=== PATIENT | female | born 1950 | race Caucasian/White ===

== ENCOUNTER 2016-10-11 07:20 | Day surgery (SDC) | payer OTHER ==
[2016-10-11 07:51] VITALS: BMI 38.5
--- NOTE | 2016-10-11 08:56 | CP.SDSHP ---
Same Day Surgery H & P - History Proposed Procedure: COLONSCOPY Pre-Op Diagnosis: SEE NOTES - Previous Medical/Surgical History Cardiac: Hypertension Misc: Other Pain: 4.Moderate Pain Previous Surgical History: HX. OF COLON POLYPS - Allergies Allergies: Allergies No Known Allergies Allergy (Unverified 07/13/13 16:48) - Physical Exam General Appearance: N Vital Signs: Vital Signs 10/11/16 08:00 Temperature 97.8 F Pulse Rate 52 L Respiratory 17 Rate Blood Pressure 130/54 L O2 Sat by Pulse 100 Oximetry Mental Status: Alert & Oriented x3 Neuro: WNL Heart: Other Lungs: WNL GI: WNL - {Optional Preform as Required} Breast: WNL Abdomen: Other Rectal: Other Integument: WNL : WNL Ortho: WNL - Impression Pt. Evaluated Today:Candidate for Anesthesia & Procedure: Yes - Date & Time Time: 08:58 Short Stay Discharge - Short Stay Discharge Admitting Diagnosis/Reason for Visit: COLON POLYP Disposition: HOME/ ROUTINE
[2016-10-11] MEDS ORDERED: Lactated Ringer's 500 ML IV ONE ×2 (08:57)
[2016-10-11] MEDS ORDERED: Propofol 10 mg/ml Inj (20 ML) ONE (08:57)
[2016-10-11] MEDS ORDERED: Belladonna-Phenobarbital PO STA (08:59)
[2016-10-11 10:00] VITALS: TEMP 98.9
[2016-10-11 10:49] VITALS: BP 130/50; PULSE 47; RESP 17; O2SAT 99
== END 2016-10-11 10:40 | disposition home or self-care (01) ==
LOC: C.ENDO 07:20
PROVIDERS: ATTEND Specialist
DX: D12.0 Benign neoplasm of cecum (principal); K64.8 Other hemorrhoids
CPT/HCPCS: 45388; 88305; J2001; J2704; J7120

== ENCOUNTER 2016-10-13 06:40 | Day surgery (SDC) | payer OTHER ==
[2016-10-13 07:14] VITALS: TEMP 97.1
--- NOTE | 2016-10-13 08:07 | CP.SDSHP ---
Same Day Surgery H & P - History Proposed Procedure: EGD Pre-Op Diagnosis: SEE NOTES - Previous Medical/Surgical History Cardiac: Hypertension Misc: Other Pain: 4.Moderate Pain - Allergies Allergies: Allergies No Known Allergies Allergy (Unverified 07/13/13 16:48) - Physical Exam General Appearance: N Vital Signs: Vital Signs 10/13/16 07:08 Temperature 97.1 F L Pulse Rate 54 L Respiratory 19 Rate Blood Pressure 132/58 L O2 Sat by Pulse 99 Oximetry Mental Status: Alert & Oriented x3 Neuro: WNL Heart: Other Lungs: WNL GI: WNL - {Optional Preform as Required} Breast: WNL Abdomen: Other Rectal: Other Integument: WNL : WNL Ortho: Other ENT: WNL - Impression Pt. Evaluated Today:Candidate for Anesthesia & Procedure: Yes - Date & Time Time: 08:07 Short Stay Discharge - Short Stay Discharge Admitting Diagnosis/Reason for Visit: DYSPEPSIA Disposition: HOME/ ROUTINE
[2016-10-13] MEDS ORDERED: Propofol 10 mg/ml Inj (20 ML) ONE (08:09)
[2016-10-13] MEDS ORDERED: Belladonna-Phenobarbital PO ONE (08:30)
[2016-10-13 09:08] VITALS: RESP 18
[2016-10-13 09:23] VITALS: O2SAT 100
[2016-10-13 09:25] VITALS: BP 131/70; PULSE 57
== END 2016-10-13 09:23 | disposition home or self-care (01) ==
LOC: C.ENDO 06:40
PROVIDERS: ATTEND Specialist
DX: K44.9 Diaphragmatic hernia without obstruction or gangrene (principal); K31.7 Polyp of stomach and duodenum; K31.9 Disease of stomach and duodenum, unspecified; I10 Essential (primary) hypertension; Z79.899 Other long term (current) drug therapy

== ENCOUNTER 2018-03-06 08:43 | Day surgery (SDC) | payer OTHER ==
--- NOTE | 2018-03-06 10:26 | CP.SDSHP ---
Same Day Surgery H & P - History Proposed Procedure: COLONSCOPY Pre-Op Diagnosis: SEE NOTES - Previous Medical/Surgical History Cardiac: Hypertension, ASHD/CAD Endocrine/Metabolic: Diabetes, Other Neuro: Backaches - Allergies Allergies: Allergies No Known Allergies Allergy (Unverified 03/06/18 09:21) - Physical Exam General Appearance: N Vital Signs: Vital Signs 03/06/18 09:00 Temperature 98.4 F Pulse Rate 50 L Respiratory 16 Rate Blood Pressure 125/55 L O2 Sat by Pulse 96 Oximetry Mental Status: Alert & Oriented x3 Neuro: WNL Heart: Other Lungs: WNL GI: Other - {Optional Preform as Required} Breast: WNL Abdomen: Other Rectal: Other Integument: WNL : WNL Ortho: Other ENT: WNL - Impression Pt. Evaluated Today:Candidate for Anesthesia & Procedure: Yes - Date & Time Time: 10:26 Short Stay Discharge - Short Stay Discharge Admitting Diagnosis/Reason for Visit: HISTORY OF COLON POLYP Disposition: HOME/ ROUTINE
[2018-03-06] MEDS ORDERED: Propofol 10 mg/ml Inj (20 ML) ONE (10:30)
[2018-03-06] MEDS ORDERED: Belladonna-Phenobarbital PO ONE (10:45)
[2018-03-06] MEDS ORDERED: Lidocaine Hydrochloride 5 ML INJ ONE (11:01)
[2018-03-06 11:04] VITALS: TEMP 97.8
[2018-03-06 12:39] VITALS: BP 112/48; PULSE 50; RESP 20; O2SAT 99
== END 2018-03-06 12:10 | disposition home or self-care (01) ==
LOC: C.ENDO 08:43
PROVIDERS: ATTEND Specialist
DX: Z86.010 Personal history of colon polyps (principal); Z12.11 Encounter for screening for malignant neoplasm of colon; D12.2 Benign neoplasm of ascending colon; D12.3 Benign neoplasm of transverse colon; K57.10 Diverticulosis of small intestine without perforation or abscess without bleeding; K64.8 Other hemorrhoids
CPT/HCPCS: 45380; 82948; 88305; J2704

== ENCOUNTER 2018-08-15 09:12 | Emergency (ER) | payer OTHER ==
[2018-08-15 09:12] VITALS: BMI 38.5
--- NOTE | 2018-08-15 10:26 | C.PDOC ---
History Of Present Illness 68 y/o female brought to ER by ambulance for evaluation of head injury s/p fall today. Patient states that she tripped, fell, and face-planted on the ground. Patient has abrasion to the chin and abrasion to bilateral hands and left knee. Denies having LOC, dizziness, CP,SOB,nausea, and vomiting. - HPI Time Seen by Provider: 08/15/18 09:22 Chief Complaint (Nursing): Trauma History Per: Patient History/Exam Limitations: no limitations Onset/Duration Of Symptoms: Hrs Severity: Moderate Past Medical History Reviewed: Historical Data, Nursing Documentation, Vital Signs Vital Signs: Last Vital Signs Temp 98.6 F 08/15/18 09:12 Pulse 67 08/15/18 09:12 Resp 18 08/15/18 09:12 BP 137/73 08/15/18 09:12 Pulse Ox 98 08/15/18 09:12 Primary Care Provider: Non [facility] Provider, - Medical History PMH: Arthritis, Colonic Polyps, Gastritis, HTN, Hypercholesterolemia, Migraine Denies: Chronic Kidney Disease Surgical History: Endoscopy Family History: States: No Known Family Hx - Social History Hx Tobacco Use: No Hx Alcohol Use: No Hx Substance Use: No - Immunization History Hx Influenza Vaccination: No Hx Pneumococcal Vaccination: No Review Of Systems Except As Marked, All Systems Reviewed And Found Negative. Constitutional: Negative for: Fever, Chills Cardiovascular: Negative for: Chest Pain Respiratory: Negative for: Shortness of Breath Gastrointestinal: Negative for: Nausea, Vomiting Skin: Positive for: Other (abrasion to chin, bilateral hands, and left knee) Neurological: Negative for: Weakness, Numbness Physical Exam - Physical Exam Appears: Non-toxic, No Acute Distress Skin: Normal Color, Warm, Dry, Other (abrasions to palms of bilateral hands and left knee) Head: Normacephalic, Other (abrasion to chin) Eye(s): bilateral: Normal Inspection, PERRL, EOMI Nose: Other (some bleeding from nose, ? small deformity) Oral Mucosa: Moist Neck: Supple Chest: Symmetrical Cardiovascular: Rhythm Regular Respiratory: Normal Breath Sounds, No Rales, No Rhonchi, No Wheezing Gastrointestinal/Abdominal: Normal Exam, Soft, No Tenderness, No Guarding, No Rebound Neurological/Psych: Oriented x3, Normal Speech, Normal Motor, Normal Sensation ED Course And Treatment O2 Sat by Pulse Oximetry: 98 (RA) Pulse Ox Interpretation: Normal - Other Rad No standard instances X-Ray: Viewed By Me, Read By Radiologist Interpretation: IMPRESSION: No significant or acute findings to account for/ related to the clinical presentation. Additional benign and/or incidental findings described above. - CT Scan/US No standard instances Other Rad Studies (CT/US): Read By Radiologist, Radiology Report Reviewed CT/US Interpretation: FINDINGS: NASAL BONES: Unremarkable. ORBITS: Unremarkable. PARANASAL SINUSES/ MASTOIDS: Mild chronic sphenoid and bilateral maxillary sinusitis. MAXILLA: Unremarkable. MANDIBLE/ TEMPOROMANDIBULAR JOINTS: Unremarkable. SKULL BASE: Unremarkable. TEMPORAL BONES: Middle ears and mastoid grossly unremarkable. OTHER FINDINGS: None. IMPRESSION: No acute fracture. Mild chronic sphenoid and bilateral maxillary sinusitis. Otherwise unremarkable examination. FINDINGS: HEMORRHAGE: No intracranial hemorrhage. BRAIN: No mass effect or edema. No significant atrophy. Mild periventricular white matter lucency with patchy deep/subcortical white matter lucency consistent with microvascular white matter ischemic change. No evidence of acute infarct. VENTRICLES: Unremarkable. No hydrocephalus. CALVARIUM: Unremarkable. PARANASAL SINUSES: Minimal chronic sphenoid sinusitis. MASTOID AIR CELLS: Unremarkable as visualized. No inflammatory changes. OTHER FINDINGS: None. IMPRESSION: No acute intracranial hemorrhage. Minimal chronic sphenoid sinusitis. Mild chronic white matter ischemic change. Otherwise unremarkable. CT-Head Other Rad Studies (CT/US): Read By Radiologist, Radiology Report Reviewed CT/US Interpretation: Date of service: 08/15/2018. PROCEDURE: CT HEAD WITHOUT CONTRAST. HISTORY: trauma. COMPARISON: Not available. TECHNIQUE: Axial computed tomography images were obtained through the head/brain without intravenous contrast. Radiation dose: Total exam DLP = 888.34 mGy-cm. This CT exam was performed using one or more of the following dose reduction techniques: Automated exposure control, adjustment of the mA and/or kV according to patient size, and/or use of iterative reconstruction technique. FINDINGS: HEMORRHAGE: No intracranial hemorrhage. BRAIN: No mass effect or edema. No significant atrophy. Mild periventricular white matter lucency with patchy deep/subcortical white matter lucency consistent with microvascular white matter ischemic change. No evidence of acute infarct. VENTRICLES: Unremarkable. No hydrocephalus. CALVARIUM: Unremarkable. PARANASAL SINUSES: Minimal chronic sphenoid sinusitis. MASTOID AIR CELLS: Unremarkable as visualized. No inflammatory changes. OTHER FINDINGS: None. IMPRESSION: No acute intracranial hemorrhage. Minimal chronic sphenoid sinusitis. Mild chronic white matter ischemic change. Otherwise unremarkable. Progress Note: CT-Head, CT-Maxillofacial, and X-Ray-Left Knee ordered and reviewed. Patient treated with Tylenol PO. Reassessment Condition: Improved Disposition Counseled Patient/Family Regarding: Studies Performed, Diagnosis, Need For Followup, Rx Given - Disposition Referrals: [facility] [Outside] [facility] [Outside] Disposition: HOME/ ROUTINE Disposition Time: 14:00 Condition: GOOD Additional Instructions: Ice to affected area Motrin as needed for pain Instructions: Contusion (DC), Minor Head Injury (DC) Forms: [email or web address] (Frisian) Print Language: NAMIBIAN - POA Present On Arrival: None - Clinical Impression Clinical Impression: Head injury due to trauma, Contusion - PA / [employer]PER[employer] / Resident Statement MD/DO has reviewed & agrees with the documentation as recorded. - Scribe Statement The provider has reviewed the documentation as recorded by the Lit Gallego Provider Attestation All medical record entries made by the Fredrickibe were at my direction and personally dictated by me. I have reviewed the chart and agree that the record accurately reflects my personal performance of the history, physical exam, medical decision making, and the department course for this patient. I have also personally directed, reviewed, and agree with the discharge instructions and disposition.
[2018-08-15 11:52] VITALS: PULSE 58
--- NOTE | 2018-08-15 12:39 | CT ---
Date of service: 08/15/2018 PROCEDURE: CT HEAD WITHOUT CONTRAST. HISTORY: trauma COMPARISON: Not available TECHNIQUE: Axial computed tomography images were obtained through the head/brain without intravenous contrast. Radiation dose: Total exam DLP = 888.34 mGy-cm. This CT exam was performed using one or more of the following dose reduction techniques: Automated exposure control, adjustment of the mA and/or kV according to patient size, and/or use of iterative reconstruction technique. FINDINGS: HEMORRHAGE: No intracranial hemorrhage. BRAIN: No mass effect or edema. No significant atrophy. Mild periventricular white matter lucency with patchy deep/subcortical white matter lucency consistent with microvascular white matter ischemic change. No evidence of acute infarct. VENTRICLES: Unremarkable. No hydrocephalus. CALVARIUM: Unremarkable. PARANASAL SINUSES: Minimal chronic sphenoid sinusitis MASTOID AIR CELLS: Unremarkable as visualized. No inflammatory changes. OTHER FINDINGS: None. IMPRESSION: No acute intracranial hemorrhage. Minimal chronic sphenoid sinusitis. Mild chronic white matter ischemic change. Otherwise unremarkable.
--- NOTE | 2018-08-15 12:43 | RAD ---
Date of service: 08/15/2018 PROCEDURE: Left Knee Radiographs. HISTORY: Posttraumatic pain. COMPARISON: None. TECHNIQUE: 2 views obtained. FINDINGS: BONES: Normal. No fracture. Small quadriceps tendon insertion osteophyte. JOINTS: Normal. No osteoarthritis. JOINT EFFUSION: None. OTHER FINDINGS: None. IMPRESSION: No significant or acute findings to account for/ related to the clinical presentation. Additional benign and/or incidental findings described above.
[2018-08-15 13:45] VITALS: O2SAT 98
--- NOTE | 2018-08-15 13:45 | CT ---
Date of service: 08/15/2018 PROCEDURE: CT MAXILLOFACIAL BONES WITHOUT CONTRAST HISTORY: trauma COMPARISON: Not available TECHNIQUE: Contiguous axial CT images of the maxillofacial bones were obtained. Coronal and sagittal reformats were generated. Radiation dose: Total exam DLP = 773.14 mGy-cm. This CT exam was performed using one or more of the following dose reduction techniques: Automated exposure control, adjustment of the mA and/or kV according to patient size, and/or use of iterative reconstruction technique. FINDINGS: NASAL BONES: Unremarkable. ORBITS: Unremarkable. PARANASAL SINUSES/ MASTOIDS: Mild chronic sphenoid and bilateral maxillary sinusitis. MAXILLA: Unremarkable. MANDIBLE/ TEMPOROMANDIBULAR JOINTS: Unremarkable. SKULL BASE: Unremarkable. TEMPORAL BONES: Middle ears and mastoid grossly unremarkable. OTHER FINDINGS: None. IMPRESSION: No acute fracture. Mild chronic sphenoid and bilateral maxillary sinusitis. Otherwise unremarkable examination.
[2018-08-15 14:17] VITALS: BP 129/77; RESP 20; TEMP 97.9
== END 2018-08-15 14:17 | disposition home or self-care (01) ==
LOC: C.ER 09:12
DX: S09.90XA Unspecified injury of head, initial encounter (principal); T14.8XXA Other injury of unspecified body region, initial encounter; W01.0XXA Fall on same level from slipping, tripping and stumbling without subsequent striking against object, initial encounter; I10 Essential (primary) hypertension; E78.00 Pure hypercholesterolemia, unspecified; M19.90 Unspecified osteoarthritis, unspecified site